=== PATIENT | female | born 1990 | race Caucasian/White ===

== ENCOUNTER 2018-03-06 10:19 | Outpatient (RCR) | payer OTHER | END 2018-05-21 | disposition home or self-care (01) | LOC: WSOH | DX: M65.4 Radial styloid tenosynovitis [de Quervain] (principal); M65.312 Trigger thumb, left thumb; R20.8 Other disturbances of skin sensation; M79.641 Pain in right hand; X50.3XXA Overexertion from repetitive movements, initial encounter; Y93.G1 Activity, food preparation and clean up; Y92.59 Other trade areas as the place of occurrence of the external cause; Y99.0 Civilian activity done for income or pay; F17.210 Nicotine dependence, cigarettes, uncomplicated; Z79.1 Long term (current) use of non-steroidal anti-inflammatories (NSAID) | CPT/HCPCS: 24091; A6549 ==